=== PATIENT | male | born 1980 | race Caucasian/White ===

== ENCOUNTER 2023-05-16 10:04 | Outpatient (CLI) | payer BC, SELFPAY | END 2023-05-16 10:05 | disposition home or self-care (01) | LOC: NFLDREF 05-17 03:01 | PROVIDERS: PCP Family Medicine; Referring Provider Family Medicine; Visit Provider Family Medicine | DX: Z00.00 Encounter for general adult medical examination without abnormal findings (principal); R53.83 Other fatigue; E03.9 Hypothyroidism, unspecified; F41.9 Anxiety disorder, unspecified; Z13.6 Encounter for screening for cardiovascular disorders | CPT/HCPCS: 80048; 80061; 84270; 84402; 84403; 84443 ==

== ENCOUNTER 2024-04-09 14:50 | Outpatient (CLI) | payer BC, SELFPAY ==
[2024-04-09 22:34] LABS: Chlamydia DNA Amplified* NOT DETECTED (No Detected); GC DNA Amplified* NOT DETECTED (No Detected)
== END 2024-04-09 14:51 | disposition home or self-care (01) ==
LOC: LKVREF 14:51
PROVIDERS: PCP Family Medicine; Visit Provider Nurse Practitioner Family
DX: Z11.3 Encounter for screening for infections with a predominantly sexual mode of transmission (principal)
CPT/HCPCS: 87491; 87591

== ENCOUNTER 2024-05-21 13:15 | Outpatient (CLI) | payer BC, SELFPAY | END 2024-05-21 13:16 | disposition home or self-care (01) | LOC: NFLDREF 05-25 07:13 | PROVIDERS: PCP Family Medicine; Referring Provider Family Medicine; Visit Provider Family Medicine | DX: Z00.00 Encounter for general adult medical examination without abnormal findings (principal); E03.9 Hypothyroidism, unspecified; R53.83 Other fatigue; Z13.1 Encounter for screening for diabetes mellitus; Z13.6 Encounter for screening for cardiovascular disorders | CPT/HCPCS: 80053; 80061; 82607; 84270; 84402; 84403; 84443 ==